=== PATIENT | male | born 1950 ===

== ENCOUNTER 2017-06-24 08:11 | Inpatient (IN) | payer OTHER ==
[2017-06-01 13:24] VITALS: BMI 24.0
--- NOTE | 2017-06-01 14:06 | PAT Medication Instructions ---
Service Date Jun 01, 2017. Current Home Medication List Albuterol Hfa (Ventolin Hfa), 2 PUFFS INH Q6H PRN for PRN Amlodipine (Norvasc), 10 MG PO QPM Clonidine Hcl (Catapres), 0.2 MG PO BID Nitroglycerin (Nitrostat), 0.4 MG UT PRN Pantoprazole (Protonix), 40 MG PO 2-3X A DAY Sucralfate (Carafate), 1 GM PO QIDM [Goodeys], 1 DOSE PO PRN [Vitamin B12], 1 DOSE INJ MONTHLY Medication Instructions For Your Scheduled Surgery -Continue as directed: Nitroglycerin (Nitrostat), 0.4 MG UT PRN [Vitamin B12], 1 DOSE INJ MONTHLY - Hold the following medications the morning of surgery: [Goodeys], 1 DOSE PO PRN Sucralfate (Carafate), 1 GM PO QIDM - Take the following medications the morning of surgery with a sip of water: Clonidine Hcl (Catapres), 0.2 MG PO BID Pantoprazole (Protonix), 40 MG PO 2-3X A DAY Albuterol Hfa (Ventolin Hfa), 2 PUFFS INH Q6H PRN for PRN (if needed) - Take the following medications as scheduled the night before surgery: [Goodeys], 1 DOSE PO PRN (if needed) Amlodipine (Norvasc), 10 MG PO QPM Sucralfate (Carafate), 1 GM PO QIDM Clonidine Hcl (Catapres), 0.2 MG PO BID Pantoprazole (Protonix), 40 MG PO 2-3X A DAY Albuterol Hfa (Ventolin Hfa), 2 PUFFS INH Q6H PRN for PRN (if needed) If you have any questions please call us at [phone] or [phone] or [phone]
[2017-06-01 14:43] LABS: HEMATOCRIT 41.6 % (42-52); HEMOGLOBIN 14.3 g/dL (14.0-18.0); MEAN CELL VOLUME 89.5 fL (80-100); MEAN CORPUSCULAR HEMOGLOBIN 30.8 pg (25-34); MEAN CORPUSCULAR HGB CONC 34.4 g/dl (32-36); MEAN PLATELET VOLUME 10.4 fL (7.4-10.4); PLATELET COUNT 249 K/uL (130-400); RED CELL DISTRIBUTION WIDTH SD 45.9 fL (36.4-46.3); WHITE BLOOD COUNT 6.66 K/uL (4.8-10.8)
--- NOTE | 2017-06-01 14:46 | DIAGNOSTIC IMAGING REPORT ---
CHEST 2 VIEWS ROUTINE CLINICAL HISTORY: 66 years-old Male presenting with preoperative assessment. TECHNIQUE: PA and lateral views of the chest were obtained. COMPARISON: None. FINDINGS: Atherosclerosis of the aortic arch. Tortuosity of the descending thoracic aorta. Cardiac silhouette normal in size. Lungs and pleural spaces clear. Osseous structures normal. Upper abdomen normal. IMPRESSION: 1. No acute cardiopulmonary disease. Electronically signed by: Shiva Colón M.D. 06/01/2017 2:44 PM Dictated Date/Time: 06/01/2017 2:44 PM
[2017-06-01 14:50] LABS: CALCIUM 8.5 mg/dl (8.5-10.1); CREATININE 0.86 mg/dl (0.60-1.40); POTASSIUM 4.1 mmol/L (3.5-5.1)
[2017-06-24] VITALS (11 sets, daily range): BP systolic 142–184; BP diastolic 82–106; PULSE 65–91; TEMP 34.6–36.5; O2SAT 93–97; Ht 188 cm; Wt 84.6 kg
[~2017-06-24] VITALS: Ht 188 cm; Wt 84.6 kg
[~2017-06-24 08:11] MED LIST: AMLO-114 PO; CEFAZOLIN 2000MG IV PUSH 15 ML IV SCH; CLON0.2T PO; LACTATED RINGER'S 1000ML 1,000 ML IV SCH; NITR0.4S UT; PANT40TA PO; SUCR1TAB29 PO; VITAMIN B12 INJ; VNTHFA/IN INH; [UNRECOGNIZED DRUG - OTHER] PO
[2017-06-24] MEDS ORDERED: MIDAZOLAM HCL 1 MG/ML 2ML VIAL ONE (08:17)
[2017-06-24] MEDS ORDERED: FENTANYL CITRATE INJ 50 MCG/1 ML 2 ML VIAL ONE ×2 (08:40)
--- NOTE | 2017-06-24 09:18 | History & Physical Bridge Note ---
H&P Re-Evaluation Bridge Note: I have examined the patient, reviewed the History & Physical and in the interval since the performance of the History & Physical I have noted the following changes of clinical significance: No changes noted
--- NOTE | 2017-06-24 09:19 | History and Physical ---
History & Physical Date Jun 24, 2017. History of Present Illness The patient is a 66 year old male with complaints of back and leg pain Additional History Hepatic Disease: No Endocrine Disorder: No Kidney Disease: No Hypertension: Yes Heart Disease: No Bleeding Tendencies: No Infectious Diseases: No Allergies Coded Allergies: No Known Allergies (Verified , 06/24/17) Home Medications Scheduled Amlodipine (Norvasc), 10 MG PO QPM Clonidine Hcl (Catapres), 0.2 MG PO BID Nitroglycerin (Nitrostat), 0.4 MG UT PRN Pantoprazole (Protonix), 40 MG PO 2-3X A DAY Sucralfate (Carafate), 1 GM PO QIDM [Goodeys], 1 DOSE PO PRN [Vitamin B12], 1 DOSE INJ MONTHLY Scheduled PRN Albuterol Hfa (Ventolin Hfa), 2 PUFFS INH Q6H PRN for PRN Physical Examination Skin: warm/dry, no rash Eyes: normal inspection, EOMI, sclerae normal ENT: normal ENT inspection, pharynx normal Head: normocephalic, atraumatic Neck: supple, no adenopathy, trachea midline Respiratory/Chest: lungs clear, normal breath sounds, no respiratory distress Cardiovascular: regular rate, rhythm, no edema, no murmur Abdomen / GI: normal bowel sounds, non tender Back: normal inspection Extremities: normal inspection, normal range of motion Neurologic/Psych: no motor/sensory deficits, alert, normal reflexes, oriented x 3 Diagnosis Lumbar spinal stenosis with spondylolisthesis Plan of Treatment Decompression fusion L4-5 possible L3-4 L5-S1
[2017-06-24] MEDS ORDERED: BUPIVACAINE/EPINEPHRINE 0.5% MPF 1:200,000 30 ML VIAL ONE (09:29)
[2017-06-24] MEDS ORDERED: BACITRACIN 50000 UNIT VIAL ONE (09:29)
[2017-06-24] MEDS ORDERED: ATROPINE SULFATE 0.1 MG/ML 5ML SYR IV PRN (09:45)
[2017-06-24] MEDS ORDERED: EpHEDrine SULFATE INJ 50 MG/ML AMP IV PRN (09:45)
[2017-06-24] MEDS ORDERED: PROMETHAZINE HCL INJ 6.25 MG in SODIUM CHLORIDE 0.9% 50ML 50 ML IV PRN (09:45)
[2017-06-24] MEDS ORDERED: HYDROmorphone INJ 1 MG/ML SYR IV PRN (09:45)
[2017-06-24] MEDS ORDERED: ONDANSETRON INJ 2 MG/ML 2 ML VIAL IV PRN ×2 (09:45→11:30)
[2017-06-24] MEDS ORDERED: CEFAZOLIN SOD 1 GM VIAL ONE ×2 (10:05→10:13)
[2017-06-24] MEDS ORDERED: KETAMINE HCL INJ 50 MG/ML 10 ML VIAL ONE (10:05)
[2017-06-24] MEDS ORDERED: EpHEDrine SULFATE 50MG/5ML SYR ONE (10:09)
[2017-06-24] MEDS ORDERED: ACETAMINOPHEN 1000 MG/100 ML IV IV ONE (10:28)
[2017-06-24] MEDS ORDERED: PROPOFOL IV EMULSION 10 MG/ML 20 ML VIAL IV ONE (10:38)
[2017-06-24] MEDS ORDERED: LIDOCAINE HCL 2% 2 ML VIAL (20MG/ML) ONE (10:38)
[2017-06-24] MEDS ORDERED: ONDANSETRON INJ 2 MG/ML 2 ML VIAL ONE (10:38)
[2017-06-24] MEDS ORDERED: GLYCOPYRROLATE INJ 0.2 MG/ML VIAL ONE (10:38)
[2017-06-24] MEDS ORDERED: NEOSTIGMINE METHYLSULFATE 1 MG/ML 10ML VIAL ONE (10:38)
[2017-06-24] MEDS ORDERED: DEXAMETHASONE SOD INJ 4 MG/ML VIAL ONE (10:38)
[2017-06-24] MEDS ORDERED: PHENYLEPHRINE 100MCG/ML 5ML SYR ONE (10:41)
[2017-06-24] MEDS ORDERED: FLOSEAL HEMOSTATIC MATRIX 10ML TOP ONE (11:20)
[2017-06-24] MEDS ORDERED: DURASEAL DURAL SEALANT 5ML TOP ONE (11:20)
[2017-06-24] MEDS ORDERED: SODIUM CHLORIDE 0.9% 1000ML 1,000 ML IV SCH (11:20)
--- NOTE | 2017-06-24 11:20 | [facility] Operative Report ---
Operative Report Operative Date Jun 24, 2017. Pre-Operative Diagnosis Lumbar spinal stenosis with spondylolisthesis Post-Operative Diagnosis Same Procedure(s) Performed 1. Revision decompression L4-5 #2 history of spinal fusion L4-5 L5-S1. #3 placement posterior instrumentation L4-S1. #4 placement of locally harvested Walsh's allograft in the posterior gutters. #5 please infuse collagen sponge, Nasta graft in the posterior lateral gutters. Surgeon Dr. Lobo Linoleum Installer Surgeon(s) Giuliano Banerjee PA-C Estimated Blood Loss 50 Findings Retrolisthesis with spinal stenosis Description of Procedure Patient was met with preoperatively case discussed all questions addressed. After informed consent obtained patient was taken to the operative suite underwent intubation and placed in a prone position on the Salvador table on top of the Baudilio frame. All bony prominences were well-padded the eyes inspected to ensure no external pressure placed upon them. This point the lumbar spine was prepped and draped in the normal sterile fashion. Sharp dissection with the assistance Bovie cautery was performed exposing the remaining lamina and transverse processes of L4-L5 and superiorly bilaterally. Informed small revision laminotomy at L4-5 on the left. 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 This was covered with a layer of DuraSeal. I then proceeded to place pedicle screws in L4 and S1 levels bilaterally with the assistance of fluoroscopy and a Propacet stevenson placed. Transverse processes of L4 -L5 and the sugar ala were then burred to subcortical bleeding bone. Infuse collagen sponge master graft and locally harvested most of Was placed in the posterior gutters. Incision was then closed with 1 Vicryl to fascia 2-0 Vicryl subcutaneous and 4-0 Monocryl for fashion closure Steri- Strips sterile dressings placed. Patient will continue to PACU stable condition. Please note Jesse Banerjee was present throughout the entire procedure involved in patient positioning complex portions of the surgery and fashion closure. I attest to the content of the Intraoperative Record and any orders documented therein. Any exceptions are noted below.
--- NOTE | 2017-06-24 11:24 | DIAGNOSTIC IMAGING REPORT ---
LUMBAR SPINE 2 OR 3 VIEW CLINICAL HISTORY: L4-5 REVISION DECOMPRESSION/FUSION WITH POSSIBLE L3-4 TECHNIQUE: Image intensifier COMPARISON STUDY: None FINDINGS: 3 image intensifier images of an L4-L5 laminectomy and fusion. The posterior aspects of the inferior bolts traverse the S1 element. IMPRESSION: L4-L5 laminectomy and fusion The above report was generated using voice recognition software. It may contain grammatical, syntax or spelling errors. Electronically signed by: Hill Cardona M.D. 06/24/2017 11:23 AM Dictated Date/Time: 06/24/2017 11:21 AM
[2017-06-24] MEDS ORDERED: ALUMINUM/MAGNESIUM SUSP 30 ML UDC PO PRN (11:30)
[2017-06-24] MEDS ORDERED: DO NOT ADMINISTER FLU VACCINE PRN (11:30)
[2017-06-24] MEDS ORDERED: DO NOT ADMINISTER PNEUMOCOCCAL VACCINE PRN (11:30)
[2017-06-24] MEDS ORDERED: METOCLOPRAMIDE HCL INJ 5 MG/ML 2 ML VIAL IV PRN (11:30)
[2017-06-24] MEDS ORDERED: BISACODYL 10 MG SUPP PR PRN (11:30)
[2017-06-24] MEDS ORDERED: ALBUTEROL HFA 8 GM INHALER INH PRN (11:30)
[2017-06-24] MEDS ORDERED: FAMOTIDINE 20 MG TAB PO PRN (11:30)
[2017-06-24] MEDS ORDERED: NALOXONE HCL 0.4 MG/1 ML VIAL/CARP IV PRN ×2 (11:30)
[2017-06-24] MEDS ORDERED: MAGNESIUM HYDROXIDE SUSP 30 ML UDC PO PRN (11:30)
[2017-06-24] MEDS ORDERED: NITROGLYCERIN 0.4 MG SL PER TAB CHARGE UT PRN (11:30)
[2017-06-24] MEDS ORDERED: SOD PHOSPHATE/SOD BIPHOSPHATE ENEMA 132 ML BTL PR PRN (11:30)
[2017-06-24] MEDS ORDERED: hydrOXYzine HCL 25 MG TAB PO PRN (11:30)
[2017-06-24] MEDS ORDERED: ACETAMINOPHEN IV 100 ML IV PRN (11:30)
[2017-06-24] MEDS ORDERED: HYDROmorphone HCL 0.5MG/ML 50 ML CASSETTE ONE (11:42)
[2017-06-24] MEDS: FENTANYL CITRATE INJ 50 MCG/1 ML 2 ML VIAL IV PRN ×2 (11:44→11:49)
--- NOTE | 2017-06-24 12:28 | Anesthesiology Progress Note ---
Anesthesia Post Op Note Date & Time Jun 24, 2017 at 12:28 Vital Signs Pain Intensity: 3 Vital Signs Past 12 Hours Date Time Temp Pulse Resp B/P (MAP) Pulse Ox O2 Delivery O2 Flow Rate FiO2 06/24/17 12:23 36.4 06/24/17 12:20 69 18 06/24/17 12:20 68 18 96 06/24/17 12:16 164/89 06/24/17 12:15 61 16 95 06/24/17 12:15 62 16 06/24/17 12:11 163/99 06/24/17 12:10 69 12 94 06/24/17 12:10 70 12 06/24/17 12:06 169/90 06/24/17 12:05 65 20 06/24/17 12:05 65 20 94 06/24/17 12:01 164/99 06/24/17 12:00 72 11 95 06/24/17 12:00 72 11 06/24/17 11:56 161/86 06/24/17 11:55 68 11 06/24/17 11:55 66 11 96 06/24/17 11:52 162/83 06/24/17 11:50 69 13 06/24/17 11:50 69 13 98 06/24/17 11:46 145/85 06/24/17 11:45 74 13 97 06/24/17 11:45 73 13 06/24/17 11:41 161/88 06/24/17 11:40 72 20 06/24/17 11:40 72 20 98 06/24/17 11:39 164/93 06/24/17 11:35 36.3 73 16 164/93 99 Nasal Cannula 4 06/24/17 08:29 36.5 65 18 152/106 95 Room Air Notes Mental Status: alert / awake / arousable, participated in evaluation Pt Amnestic to Procedure: Yes Nausea / Vomiting: adequately controlled Pain: adequately controlled Airway Patency, RR, SpO2: stable & adequate BP & HR: stable & adequate Hydration State: stable & adequate Anesthetic Complications: no major complications apparent
[2017-06-24] MEDS ORDERED: COUGH DROP (SUGAR FREE) LOZ 24 LOZ/1 BOX LOZ PRN (13:45)
[2017-06-24] MEDS: LACTATED RINGER'S 1000ML 1,000 ML IV SCH ×2 (14:21→19:51)
[2017-06-24] MEDS: NICOTINE 14 MG/24 HR TDSY TD SCH (14:32)
[2017-06-24] MEDS: HYDROmorphone HCL 0.5MG/ML 50 ML CASSETTE IV PRN ×2 (15:00→22:56)
[2017-06-24] MEDS: CEFAZOLIN IV 2,000 MG in SYRINGE 0 ML IV SCH (18:12)
[2017-06-24] MEDS: SUCRALFATE 1 GM TAB PO SCH ×2 (18:12→21:01)
[2017-06-24] MEDS: LORAZEPAM 0.5 MG TAB PO PRN (18:12)
[2017-06-24] MEDS ORDERED: NURSING VERBAL MED ORDER ONE (19:15)
[2017-06-24] MEDS: DOCUSATE SODIUM/SENNA 50/8.6MG TAB PO SCH (21:01)
[2017-06-24] MEDS: AMLODIPINE BESYLATE 5 MG TAB PO SCH (21:02)
[2017-06-24] MEDS: PANTOprazole SOD 40 MG TAB PO SCH (21:02)
[2017-06-25] VITALS (7 sets, daily range): BP systolic 132–173; BP diastolic 67–93; PULSE 77–91; TEMP 36.6–37.3; O2SAT 90–95
[2017-06-25] MEDS: LACTATED RINGER'S 1000ML 1,000 ML IV SCH ×2 (02:14→09:10)
[2017-06-25] MEDS: CEFAZOLIN IV 2,000 MG in SYRINGE 0 ML IV SCH (02:14)
[2017-06-25] MEDS: PROMETHAZINE HCL INJ 12.5 MG in SODIUM CHLORIDE 0.9% 50ML 50 ML IV PRN ×2 (04:43→22:19)
[2017-06-25] MEDS ORDERED: HYDROmorphone INJ 1 MG/ML SYR IV PRN (06:00)
[2017-06-25] MEDS ORDERED: DC PCA SCH (06:00)
[2017-06-25] MEDS ORDERED: HYDROmorphone INJ 0.5 MG/0.5 ML SYR IV PRN (06:00)
[2017-06-25 06:07] LABS: BASO % 0.1 %; BASO ABS # 0.02 K/uL (0-0.2); EOS % 0.1 %; EOS ABS # 0.01 K/uL (0-0.5); HEMATOCRIT 38.4 % (42-52); HEMOGLOBIN 13.3 g/dL (14.0-18.0); IG# 0.07 K/uL (0.00-0.02); LYMPH % 8.8 %; LYMPH ABS # 1.33 K/uL (1.2-3.4); MEAN CELL VOLUME 87.9 fL (80-100); MEAN CORPUSCULAR HEMOGLOBIN 30.4 pg (25-34); MEAN CORPUSCULAR HGB CONC 34.6 g/dl (32-36); MEAN PLATELET VOLUME 10.7 fL (7.4-10.4); MONO ABS # 1.37 K/uL (0.11-0.59); NEUT % 81.5 %; NEUT ABS # 12.36 K/uL (1.4-6.5); PLATELET COUNT 230 K/uL (130-400); RED CELL DISTRIBUTION WIDTH CV 13.5 % (11.5-14.5); RED CELL DISTRIBUTION WIDTH SD 43.1 fL (36.4-46.3); WHITE BLOOD COUNT 15.16 K/uL (4.8-10.8)
[2017-06-25 06:43] LABS: CREATININE 0.84 mg/dl (0.60-1.40); POTASSIUM 3.3 mmol/L (3.5-5.1)
[2017-06-25] MEDS: OXYCODONE HCL IR 5 MG TAB (IMMEDIATE RELEASE) PO PRN (07:52)
[2017-06-25] MEDS: ACETAMINOPHEN 500 MG TAB PO PRN ×2 (07:53→21:20)
[2017-06-25] MEDS: LORAZEPAM INJ 0.5 MG in SYRINGE 0.75 ML IV PRN ×2 (07:58→19:18)
[2017-06-25] MEDS ORDERED: PANTOprazole SOD 40 MG TAB PO SCH ×2 (09:00→21:00)
--- NOTE | 2017-06-25 09:02 | Progress Note ---
Progress Note Date of Service Jun 25, 2017. Progress Note Patient's back pain is controlled. He has no leg pain. He had episodes of nausea and vomiting early this morning. At this time is comfortable. On exam is good strength testing is able to sit of the bed without difficulty. Assessment status post lumbar decompression fusion. Plan at this time we will initiate bed to chair transfers if he tolerates this well initiate more formalized physical therapy Tuesday. Anticipate discharge home Tuesday.
[2017-06-25] MEDS: NICOTINE 14 MG/24 HR TDSY TD SCH (09:06)
[2017-06-25] MEDS: PANTOprazole SOD 40 MG TAB PO SCH ×2 (09:06→21:14)
[2017-06-25] MEDS: SUCRALFATE 1 GM TAB PO SCH ×4 (09:06→20:54)
[2017-06-25] MEDS ORDERED: NURSING VERBAL MED ORDER ONE (15:15)
[2017-06-25] MEDS: AMLODIPINE BESYLATE 5 MG TAB PO SCH (21:14)
[2017-06-25] MEDS: DOCUSATE SODIUM/SENNA 50/8.6MG TAB PO SCH (21:14)
[2017-06-26] MEDS: OXYCODONE HCL IR 5 MG TAB (IMMEDIATE RELEASE) PO PRN ×2 (03:26→23:31)
[2017-06-26] MEDS: POLYETHYLENE (MIRALAX) 17 GM PACK PO SCH ×4 (06:16→23:21)
--- NOTE | 2017-06-26 07:40 | Progress Note ---
Progress Note Date of Service Jun 26, 2017. Progress Note Patient presents postop day #2 status post lumbar decompression and fusion from L4 to sacrum. He was nauseous yesterday but has improved today. His pain is well controlled. Is not having pain rating down his leg. He does have some back pain and discomfort. He is no longer nauseous. He does not have any positional headaches. On exam he is afebrile vital signs are stable. On exam the patient is alert and oriented. Dressings clean dry and intact. Calves are supple nontender. Abdomen soft and nontender. Strength and sensation are both intact. Assessment: Patient is stable postop day #2. Plan: We will have the patient start with physical therapy today. At this point the patient is stable. We will continue with physical therapy and occupational therapy. We will continue GI and DVT prophylaxis as well as pain control measures. The patient is progressing towards discharge criteria and will have definitive discharge plans as those goals are met. Test 06/01/17 14:15 06/24/17 08:50 06/25/17 05:14 White Blood Count 6.66 15.16 Red Blood Count 4.65 4.37 Hemoglobin 14.3 13.3 Hematocrit 41.6 38.4 Mean Corpuscular Volume 89.5 87.9 Mean Corpuscular Hemoglobin 30.8 30.4 Mean Corpuscular Hemoglobin Concent 34.4 34.6 Platelet Count 249 230 Mean Platelet Volume 10.4 10.7 RDW Standard Deviation 45.9 43.1 RDW Coefficient of Variation 14.0 13.5 Neutrophils % (Manual) 54.4 Lymphocytes % (Manual) 37.7 Monocytes % (Manual) 6.1 Eosinophils % (Manual) 0.9 Basophils % (Manual) 0.9 Neutrophils # (Manual) 3.62 Total Absolute Neutrophils 3.62 Lymphocytes # (Manual) 2.51 Total Absolute Lymphocytes 2.51 Monocytes # (Manual) 0.41 Eosinophils # (Manual) 0.06 Basophils # (Manual) 0.06 Red Blood Cell Morphology Unremarkable Urine Color DK YELLOW Urine Appearance CLEAR Urine pH 5.5 Urine Specific [place] 1.025 Urine Protein NEG Urine Glucose (UA) NEG Urine Ketones TRACE Urine Occult Blood NEG Urine Nitrite NEG Urine Bilirubin NEG Urine Urobilinogen NEG Urine Leukocyte Esterase NEG Sodium Level 139 131 Potassium Level 4.1 3.3 Chloride Level 106 97 Carbon Dioxide Level 27 25 Anion Gap 5.0 9.0 Blood Urea Nitrogen 12 9 Creatinine 0.86 0.84 Est Creatinine Clear Calc Drug Dose 100.9 103.3 Estimated GFR () 106.2 107.2 Estimated GFR (Non- 91.6 92.5 BUN/Creatinine Ratio 14.0 10.9 Random Glucose 110 118 Calcium Level 8.5 8.0 Hepatitis C Antibody Screen NEG Neutrophils (%) (Auto) 81.5 Lymphocytes (%) (Auto) 8.8 Monocytes (%) (Auto) 9.0 Eosinophils (%) (Auto) 0.1 Basophils (%) (Auto) 0.1 Neutrophils # (Auto) 12.36 Lymphocytes # (Auto) 1.33 Monocytes # (Auto) 1.37 Eosinophils # (Auto) 0.01 Basophils # (Auto) 0.02 Immature Granulocyte % (Auto) 0.5 Immature Granulocyte # (Auto) 0.07
[2017-06-26 07:45] VITALS: BP 147/97; PULSE 94; TEMP 36.7; O2SAT 92
[2017-06-26] MEDS: SUCRALFATE 1 GM TAB PO SCH ×4 (09:32→20:00)
[2017-06-26] MEDS: PANTOprazole SOD 40 MG TAB PO SCH ×2 (09:32→20:23)
[2017-06-26] MEDS ORDERED: NURSING DECISION MEDICATION ORDER SCH (09:45)
[2017-06-26 11:30] VITALS: BP 138/88; PULSE 76; O2SAT 95
[2017-06-26] MEDS: NICOTINE 21 MG/24 HR TDSY TD SCH (11:35)
[2017-06-26 14:59] VITALS: BP 154/97; PULSE 91; TEMP 36.6; O2SAT 94
[2017-06-26] MEDS: KETOROLAC TROMETHAMINE 30 MG/ML VIAL IV PRN ×2 (15:20→21:31)
[2017-06-26] MEDS: DOCUSATE SODIUM/SENNA 50/8.6MG TAB PO SCH (20:23)
[2017-06-26] MEDS: AMLODIPINE BESYLATE 5 MG TAB PO SCH (20:23)
[2017-06-26] MEDS: LORAZEPAM 0.5 MG TAB PO PRN (21:47)
[2017-06-26 23:15] VITALS: BP 157/79; PULSE 84; TEMP 36.9; O2SAT 95
[2017-06-27] MEDS: POLYETHYLENE (MIRALAX) 17 GM PACK PO SCH ×2 (05:52→12:50)
[2017-06-27] MEDS: KETOROLAC TROMETHAMINE 30 MG/ML VIAL IV PRN (06:10)
[2017-06-27 07:06] VITALS: BP 150/82; PULSE 87; TEMP 36.5; O2SAT 95
[2017-06-27] MEDS: NICOTINE 21 MG/24 HR TDSY TD SCH (07:25)
[2017-06-27] MEDS: PANTOprazole SOD 40 MG TAB PO SCH (07:26)
[2017-06-27] MEDS: SUCRALFATE 1 GM TAB PO SCH ×2 (07:26→12:50)
[2017-06-27 07:51] VITALS: BP 150/82; PULSE 87; TEMP 36.5; O2SAT 95
[2017-06-27] MEDS ORDERED: RXC5 PO (08:01)
--- NOTE | 2017-06-27 08:04 | Discharge Instructions ---
Discharge Instructions Date of Service Jun 27, 2017. Admission Reason for Admission: Spinal Stenosis Discharge Discharge Diagnosis / Problem: spinal stenosis Discharge Goals Goal(s): Decrease discomfort Activity Recommendations Activity Limitations: as noted below Lifting Limitations: no more than 5 pounds . Instructions / Follow-Up Instructions / Follow-Up ACTIVITY RECOMMENDATIONS: SELF CARE INSTRUCTIONS AFTER THORACIC/LUMBAR FUSIONS 1. You may walk to your tolerance. It is good exercise for your legs and back. Expect some back and intermittent leg aches and pains. 2. You may perform "counter-top" level activities (make a sandwich, lisa with a project, etc.). 3. No bending or lifting of more than 10 pounds or back twisting of any nature (roll like a log when turning in bed). 4. You may ride in a car for 20-30 minutes at a time. No driving until after your first visit with your doctor. 5. Frequent changes of position and restricting sitting to 30 minutes at a time will help limit the amount of back spasms and stiffness you may experience. 6. You may discontinue the use of ambulatory aids (cane, crutches, etc.) once your strength and confidence allow. 7. You may train starter the shower and let water strike your incision when you arrive home at least once daily. Do not take a tub bath, sit in a hot tub or go into a swimming pool until after your first recheck in the office. SPECIAL CARE INSTRUCTIONS: VERY IMPORTANT TO READ AND REVIEW A. Your surgical incision has been closed with a cosmetic suture under the skin that will dissolve in about 6 weeks. In 14 days, you can use a pair of clean scissors and cut the suture that is left outside of the skin at the ends of your incision. 1. The small skin tapes can be removed 7 days after surgery if they have not fallen off by that point. 2. You may keep the wound open to air as much as possible to promote healing after post-op day number 5 unless told otherwise by your doctor. 3. If you think the wound looks like it is becoming infected (redness or worsening drainage) and/or you are experiencing fever, chill or worsening back pain and muscle spasms, contact the office so that we may evaluate you as soon as possible. B. Complications are uncommon, but please contact us if you have any signs or symptoms of: 1. wound infection (fever higher than 102.5 degrees F, redness, separation of wound, drainage, or increasing pain from the incision) 2. blood clots in legs (pain, swelling, redness and warmth in legs) 3. urinary tract infection (fever higher than 102.5 degrees F, burning upon urination or increased frequency of urination) 4. nerve problems (inability to walk on your toes or heels, numbness, loss of bowel or bladder control) 5. any other symptoms that concern you C. Please call the office at if you have any concerns or questions about your operation or recovery. D. No smoking! Smoking drastically decreases the chance of a solid fusion. E. Do not take any anti-inflammatory medications (Indocin, Advil, Motrin, Aspirin, Naprosyn, etc.) as these may inhibit the chance of a solid fusion. Tylenol is okay to take for pain. MANAGING PAIN AFTER SPINAL SURGERY 1. Narcotic medication is intended for short-term use and will be provided for surgical pain. Surgical pain usually lasts for a period of 4-6 weeks. Narcotic medication includes Percocet, Vicodin, Darvocet, Tylenol #3 or Lortab. 2. Longer-term pain is more appropriately treated with non-narcotic medication such as Tylenol ES. 3. Muscle spasm is not appropriately treated with narcotics. Muscle relaxers such as Soma, Flexeril or Skelaxin can be used along with Tylenol ES. 4. Remember that we all live with some "aches and pains". This is not unusual or uncommon after an injury or as we get older. a. Back pain is expected and may include muscle spasms for 4 to 6 weeks after surgery. The pain should gradually improve. If the pain worsens for no apparent reason, please contact the office. b. Intermittent leg pain may also be experienced and should not be concerned about unless it worsens for no apparent reason. If so, please contact the office. 5. We will provide appropriate medication within the normal guidelines of their prescribed use. We will also be very cautious and aware of potential abuse and extended duration of patients' medication needs. a. Pain medications are for your comfort and to assist with sleep and rest so that the tissue can heal. They are not provided in order to return to normal activity and should not be used through the day. To do so or worsening pain at night can result from ongoing tissue damage and development of tolerance to the prescribed medicine. 6. Please allow 2-3 days to process refills. Prescriptions will not be mailed but must be picked up at the office. FOLLOW UP VISIT: Keep your scheduled follow-up appointment. Any questions, please call the office at . Current Hospital Diet Patient's current hospital diet: Regular Diet Discharge Diet Recommended Diet: Regular Diet Procedures Procedures Performed: 1. Revision decompression L4-5 #2 history of spinal fusion L4-5 L5-S1. #3 placement posterior instrumentation L4-S1. #4 placement of locally harvested Awlsh's allograft in the posterior gutters. #5 please infuse collagen sponge, Nasta graft in the posterior lateral gutters. Pending Studies Studies pending at discharge: no Medical Emergencies . Who to Call and When: Medical Emergencies: If at any time you feel your situation is an emergency, please call 911 immediately. . Non-Emergent Contact Non-Emergency issues call your: Specialist Call Non-Emergent contact if: your pain is worsening . "Provider Documentation" section prepared by Jesse Banerjee. . VTE Core Measure Inpt VTE Proph given/why not?: Angel Morillo
[2017-06-27] MEDS: OXYCODONE HCL IR 5 MG TAB (IMMEDIATE RELEASE) PO PRN (12:51)
--- NOTE | 2017-06-27 15:05 | DISCHARGE SUMMARY ---
ADMITTING DIAGNOSIS: Spinal stenosis. DISCHARGE DIAGNOSIS: Same. OPERATION PERFORMED: Lumbar a lumbar decompression and fusion from L4-S1, performed on 06/24/2017. HOSPITAL COURSE AND TREATMENT: Mr. Calhoun is a pleasant 66-year-old male with history and physical examination, radiographic images consistent with the above-mentioned diagnosis. For this reason, he was brought to the operating room on 06/24/2017, underwent the above-mentioned procedure. This was performed by Dr. Lobo under general anesthesia. The patient tolerated the procedure well. Left the operating room with a Barton in place and transferred to PACU in stable condition. Due to evidence of a spinal fluid leak, he was kept down for 24 hours and was allowed bed to chair shortly after. He was placed on GI and DVT prophylaxis and progressed nicely throughout his hospital course. He was seen by physical therapy postoperative day #2 and did well with physical therapy. On postoperative day #3, he was without any type of spinal headache, tolerating p.o. well and ambulating without difficulties was deemed safe for home discharge. DISCHARGE INSTRUCTIONS: Resume his prehospital medications. Use his oxycodone for pain control. He is to avoid any full bending at the waist or lifting anything heavier than 5 pounds. He is to change the dressing once daily until it was dry and once it was dry he may begin showering. For followup care, he is to follow up with our office approximately 2 weeks out from surgery or sooner if he develops any fevers, chills or increased drainage from the incision.
== END 2017-06-27 14:44 | disposition home or self-care (01) | DRG 460 ==
LOC: C.ACU 08:11 → C.3E 11:26 → ENRESERV 11:57
PROVIDERS: ADMIT Orthopaedic Surgery Orthopaedic Surgery of the Spine; ATTEND Orthopaedic Surgery Orthopaedic Surgery of the Spine
PROC: 0SG3071 Fusion of Lumbosacral Joint with Autologous Tissue Substitute, Posterior Approach, Posterior Column, Open Approach (ICD-10-PCS; principal; 2017-06-24 09:55)
PROC: 0SG0071 Fusion of Lumbar Vertebral Joint with Autologous Tissue Substitute, Posterior Approach, Posterior Column, Open Approach (ICD-10-PCS; principal; 2017-06-24 09:55)
PROC: 00QT0ZZ Repair Spinal Meninges, Open Approach (ICD-10-PCS; principal; 2017-06-24 09:55)
DX: M48.061 Spinal stenosis, lumbar region without neurogenic claudication (principal); G96.0 Cerebrospinal fluid leak; M43.16 Spondylolisthesis, lumbar region; Z79.899 Other long term (current) drug therapy